=== PATIENT | female | born 1945 | race Caucasian/White ===

== ENCOUNTER 2019-11-25 12:04 | Day surgery (SDC) | payer MEDICARE ==
[~2019-11-25] VITALS: Ht 154.9 cm; Wt 89.5 kg
[~2019-11-25 12:04] MED LIST: ACCOLATE20 MG PO; ACETAMINOPHEN500 M1 PO; BUPROPION XL300 MG PO; CENTRUM SILVER1 EAC3 PO; COZAAR100 MG PO; ELIQUIS5 MG PO; EZFE 200200 MG PO; K-DUR20 MEQ PO; LASIX40 MG PO; MERIBIN5 MG PO; NORVASC2.5 MG PO; OSCAL PO; PEPCID AC20 MG PO; PRAVACHOL20 MG PO; PREDNISONE5 MG PO; PROAIR HFA8.5 G1 INH; PROTONIX40 MG PO; SYNTHROID88 MCG PO; VERELAN120 MG PO; VITAMIN B-6100 MG PO; XANAX0.5 MG PO; ZANAFLEX2 M1 PO; [UNRECOGNIZED DRUG - OTHER] PO
[2019-11-25 12:27] LABS: HEMOGLOBIN 10.9 g/dL (12-16); MCH 24.1 pg (26.0-34.0); MCHC 29.5 g/dL (31.0-37.0); MCV 81.7 fL (80.0-100.0); RBC 4.53 10x6/uL (4.00-5.40); RDW 18.4 % (11.5-14.5)
[2019-11-25 12:34] LABS: ANION GAP 15.2 mmol/L (8-16); CALCIUM 9.6 mg/dL (8.5-10.1); CARBON DIOXIDE 24.9 mmol/L (21.0-32.0); CREATININE - SERUM 1.3 mg/dL (0.6-1.3); POTASSIUM - SERUM 4.1 mmol/L (3.5-5.1)
[2019-11-25] MEDS ORDERED: AMOXICILLIN500 M1 PO (12:50)
[2019-11-25] MEDS ORDERED: JANTOVEN2.5 MG PO (12:55)
[2019-11-25 13:18] LABS: INR 1.11 (0.85-1.17); PROTIME 14.3 SECONDS (11.6-15.0)
[2019-11-25 13:28] VITALS: BP 152/92; Ht 154.9 cm; Wt 89.5 kg
--- NOTE | 2019-11-25 15:55 | NUR ---
1532 DR. CHURCHILL GAVE PT. REPORT. PT. IS TO RESUME ASPRIN TONIGHT AND WARFARIN TOMORROW.
--- NOTE | 2019-11-27 16:54 | OP ---
PATIENT NAME: ROYAL HERR MEDICAL RECORD: [id number] :47 LOCATION:[facility] ADMISSION DATE: SURGEON: TREVER CHURCHILL DO DATE OF OPERATION: 11/25/2019 PROCEDURE: Colonoscopy with polypectomy and biopsies. INDICATIONS FOR PROCEDURE: Change in bowel habits, diarrhea, stomach cramps. SCOPE: Olympus video pediatric colonoscope. MEDICATIONS: Propofol 400 mg IV per anesthesia. WITHDRAWAL TIME: 12 minutes. ESTIMATED BLOOD LOSS: Minimal. COMPLICATIONS: None. FINDINGS: Informed consent was given. The patient was made comfortable with the above medication. After reaching an adequate level of sedation by slow IV push, the patient was placed on her left side. A digital rectal examination was performed and was normal. The endoscope was then advanced under direct visualization through the rectum to the cecum and terminal ileum. The endoscope was slowly withdrawn and mucosa was carefully examined. The prep quality was good. There was evidence of moderate diverticulosis involving the entire colon with the main focus in the sigmoid colon. The patient did have some adhesions and stricturing in the sigmoid colon related to her diverticular disease. That being said, the endoscope was able to traverse the area without change in position or counter pressure. There were 2 polyps visualized on today's examination. They were both benign-appearing and sessile. They measured approximately 2-4 mm in diameter. They were both removed using hot forceps. One was located in the cecum and the other was located in the ascending colon. There was evidence of grade I internal hemorrhoids without bleeding involving the rectal wall. The endoscope was withdrawn from the patient. The patient tolerated the procedure well and there were no complications. IMPRESSION: 1. Two polyps as described above, removed using hot forceps. 2. Moderate diverticulosis of the colon. 3. Grade I internal hemorrhoids without bleeding. PLAN AND RECOMMENDATIONS: 1. Discharge home when recovery parameters are met. 2. Follow up biopsy specimen results. 3. High fiber diet. 4. Supplement diet with 1 tablespoon of Metamucil daily. 5. Dicyclomine 10-20 mg t.i.d. p.r.n. loose stools or abdominal pain and cramping. 6. Weighing the risk and benefits of further colonoscopies, I would not recommend another one for surveillance purposes. With this being the patient's first colonoscopy at age 74, she had 2 very small benign-appearing sessile polyps, which have been removed. 7. Follow up in GI clinic in 4-6 weeks for evaluation of symptoms after a dicyclomine trial. We will also follow up with symptoms, pending pathology of OPERATIVE REPORT [id number] ROYAL HERR stool removed today for stool studies to rule out infection and biopsies taken to rule out microscopic colitis. TRANSINT:[id number] Voice Confirmation ID: [id number] DOCUMENT ID: [id number] TREVER CHURCHILL DO at 1654 CC: [id number] DICTATION DATE: 11/25/19 1527 [employer] OPERATOR: 11/25/19 2235 [facility] 11/25/19 [id number] [place] [address]
== END 2019-11-25 16:20 | disposition home or self-care (01) ==
LOC: D.OPS 12:04
PROVIDERS: Anesthesiology; ATTEND Internal Medicine Gastroenterology
DX: R19.4 Change in bowel habit (principal); R19.7 Diarrhea, unspecified; R10.13 Epigastric pain; K63.5 Polyp of colon; K57.30 Diverticulosis of large intestine without perforation or abscess without bleeding; K64.0 First degree hemorrhoids; J45.909 Unspecified asthma, uncomplicated; I10 Essential (primary) hypertension; R12 Heartburn

== ENCOUNTER 2019-12-31 11:02 | Outpatient (CLI) | payer MEDICARE ==
[~2019-12-31] VITALS: Ht 154.9 cm; Wt 83.6 kg
[~2019-12-31 11:02] MED LIST changes: +AMOXICILLIN500 M1 PO; +JANTOVEN2.5 MG PO
[2019-12-31 12:09] VITALS: Ht 154.9 cm; Wt 83.6 kg
--- NOTE | 2019-12-31 13:57 | NUR ---
1ST UNIT [facility]'S TRANSFUSING AT THIS TIME, PATIENT TALKING ON PHONE, DENIES COMPLAINTS OR NEEDS
== END 2019-12-31 17:15 | disposition home or self-care (01) ==
LOC: D.OPS 11:02
PROVIDERS: ATTEND Family Medicine
DX: D64.9 Anemia, unspecified (principal)

== ENCOUNTER 2020-01-02 05:13 | Day surgery (SDC) | payer MEDICARE ==
[~2020-01-02] VITALS: Ht 154.9 cm; Wt 83.6 kg
[2020-01-02 05:51] LABS: HEMATOCRIT 34.2 % (36.0-48.0); HEMOGLOBIN 10.2 g/dL (12-16); MCH 26.3 pg (26.0-34.0); MCHC 29.8 g/dL (31.0-37.0); MCV 88.1 fL (80.0-100.0); MEAN PLATELET VOLUME 9.8 fL (7.4-10.4); RBC 3.88 10x6/uL (4.00-5.40); RDW 19.9 % (11.5-14.5); WBC 13.3 10x3/uL (4.8-10.8)
[2020-01-02] MEDS ORDERED: PREVACID30 MG PO (06:32)
[2020-01-02 06:45] VITALS: Ht 154.9 cm; Wt 83.6 kg
[2020-01-02 07:06] LABS: INR 1.2 (0.85-1.17); PROTIME 15.1 SECONDS (11.6-15.0)
--- NOTE | 2020-01-02 09:09 | NUR ---
0905 ALL DC INSTRUCTIONS GIVEN. FOLLOW UP APPOINTMENT FOR DR GREER GIVEN. TAKEN OUT VIA W/C BY [facility]. NO S/S OF ACUTE DISTRESS NOTED.
--- NOTE | 2020-01-03 17:35 | OP ---
PATIENT NAME: ROYAL HERR MEDICAL RECORD: [id number] :47 LOCATION:[facility] ADMISSION DATE: SURGEON: TREVER CHURCHILL DO DATE OF OPERATION: 01/02/2020 PROCEDURE: EGD with polypectomy and biopsies. INDICATIONS FOR PROCEDURE: Anemia, GI bleeding, diarrhea. SCOPE: Olympus video gastroscope. MEDICATIONS: Propofol 240 mg IV per anesthesia. ESTIMATED BLOOD LOSS: Minimal. COMPLICATIONS: None immediate. FINDINGS AND DESCRIPTION OF PROCEDURE: Informed consent was given. The patient was sedated and placed on her left side. The endoscope was advanced under direct visualization through the mouth to the second portion of the duodenum with ease. The upper and middle esophagus appeared normal. At the GE junction, there was evidence of LA class A reflux-induced esophagitis. The esophagus was shortened with the Z line located at approximately 30 cm from the incisors. The endoscope was advanced beyond the GE junction into the stomach where there was an immediate moderate size hiatal hernia appreciated immediately. The endoscope was advanced beyond the hiatal hernia into the stomach and retroflexed to confirm that there was a moderate size hiatal hernia. Within the stomach itself, there were multiple polyps, which appeared consistent with fundic gland polyps, but they were too numerous to count and ranged in size from 5 mm up to 3.5 cm. In the antrum, there was one polyp that appeared hemorrhagic. This polyp was removed using endoscopic mucosal resection technique with pillow of diluted epinephrine 1:10,000. A 2 mL were injected at the base of this polyp with a good anushka of the mucosa and a lift on the mucosa. The polyp was snared using a hot snare polypectomy. The defect left behind was closed with four endoclips successfully to prevent late or delayed complications. Samples were taken with cold forceps from a few of the gastric polyps. The largest was biopsied extensively for pathology review. Cold forceps biopsies were taken from the antrum, which appeared normal other than the polyps. These were taken to rule out the presence of H. pylori. The endoscope was advanced beyond the pylorus into the duodenum, which appeared normal to the second portion. Cold forceps biopsies were taken to submit for histopathology regarding the patient's diarrhea and anemia. The endoscope was then withdrawn from the patient. The patient tolerated the procedure well and there were no complications. IMPRESSIONS: 1. LA class A reflux-induced esophagitis with a short esophagus with the Z line located at 30 cm. 2. Moderate sized hiatal hernia. 3. Too numerous to count gastric polyps, which appeared as fundic gland polyps with multiple biopsies taken. There was a large hemorrhagic polyp located in the antrum, which measured approximately 3 cm in size. It was removed using EMR technique with a pillow of diluted epinephrine followed by hot snare polypectomy and endoclipping times 4. 4. Biopsies were taken of the antrum and duodenum. OPERATIVE REPORT [id number] ROYAL HERR PLAN AND RECOMMENDATIONS: 1. Discharge home when recovery parameters are met. 2. Follow up biopsy specimen results. 3. GERD diet and reflux precautions. 4. Continue current medications. 5. Okay to resume Coumadin tomorrow. 6. Await biopsy results for further recommendations regarding the polyps in the stomach. If surveillance is chosen regarding these polyps and the possibility of development of dysplasia over time versus a malignant process, the patient is high risk for endoscopy based on her respiratory status. This will need to be considered in future planning. 7. If there are dysplastic findings within these polyps, may need to discuss if there are surgical options for gastric resection regarding the extensive nature of these polyps. TRANSINT:[id number] Voice Confirmation ID: [id number] DOCUMENT ID: [id number] TREVER CHURCHILL DO at 1735 CC: [id number] DICTATION DATE: 01/02/20810 [facility] CL[facility]: 01/02/20 1218 [facility] 01/02/20 [facility] [address] [id number]
== END 2020-01-02 09:05 | disposition home or self-care (01) ==
LOC: D.OPS 05:13
PROVIDERS: Anesthesiology; ATTEND Internal Medicine Gastroenterology
DX: D64.9 Anemia, unspecified (principal); K92.2 Gastrointestinal hemorrhage, unspecified; R19.7 Diarrhea, unspecified; K21.9 Gastro-esophageal reflux disease without esophagitis; K44.9 Diaphragmatic hernia without obstruction or gangrene; J33.8 Other polyp of sinus; R10.84 Generalized abdominal pain; R12 Heartburn; R19.4 Change in bowel habit

== ENCOUNTER → 2020-01-10 19:58 | Outpatient (CLI) | payer MEDICARE ==
[2020-01-02 06:45] VITALS: BMI 34.8
[~2020-01-10 19:58] MED LIST changes: +PREVACID30 MG PO
== END | disposition home or self-care (01) ==
LOC: D.LABREF 19:58
PROVIDERS: ATTEND Nurse Practitioner
DX: L02.811 Cutaneous abscess of head [any part, except face] (principal)